=== PATIENT | male | born 2000 | race Two or more races ===

== ENCOUNTER 2024-06-22 17:48 | Emergency (ER) | payer MEDICAID, SELFPAY ==
[2024-06-22 17:49] VITALS: BMI 39.0
[2024-06-22 17:58] VITALS: BP 167/109; PULSE 106; RESP 19; TEMP 37.5; O2SAT 97
[2024-06-22 17:59] VITALS: BMI 42.5
[2024-06-22] MEDS: DIPHTH,PERTUSS(ACELL),TET VAC 0.5 ML SYR IMi (18:30)
[2024-06-22] MEDS: AMOXICILLIN/POT CLAV 875 TABLET 1 TAB PO (18:31)
--- NOTE | 2024-06-22 19:12 | PD.EDANIML ---
ED Animal Bite RME/HPI General Chief Complaint: General Adult/Misc Complain Stated Complaint: RIGHT 3RD DIGIT DOG BITE AND SORE THROAT X2 Time Seen by Provider: 06/22/24 18:23 Arrival date/time: 06/22/24 17:48 23M with no significant PMH presents to ED with bite from his dog on R middle finger. Separately, patient has had 2 days of sore throat, but denies cough. Patient has not had a tetanus shot in the past 5 years. Limitations: no limitations Related Data Previous Rx's ?Medication ?Instructions ?Recorded hydrocortisone 2.5 % topical cream 1 applic topical TID PRN allergic 05/26/22 reaction #30 grams acetaminophen 500 mg tablet 500 mg PO Q6H PRN pain #30 tabs 03/25/23 (Tylenol Extra Strength) ondansetron 4 mg disintegrating 4 mg PO Q6H PRN nausea and 03/25/23 tablet vomiting #10 tabs amoxicillin 875 mg-potassium 1 tab PO BID 10 days #20 tabs 06/22/24 clavulanate 125 mg tablet Allergies Allergy/AdvReac Type Severity Reaction Status Date / Time No Known Allergies Allergy Verified 06/22/24 17:51 Review of Systems Review of Systems Systems Reviewed: All systems reviewed, normal except as documented Constitutional Constitutional: Reports system reviewed and no additional complaints, except as documented, Denies fever(s) and Denies headache(s) ENT Ears, Nose, Mouth, and Throat: Reports as per HPI, Denies disequilibrium, Denies headache(s) and Reports sore throat Cardiovascular Cardiovascular: Reports system reviewed and no additional complaints, except as documented, Denies chest pain and Denies dyspnea Respiratory Respiratory: Reports system reviewed and no additional complaints, except as documented, Denies cough and Denies dyspnea Gastrointestinal Gastrointestinal: Reports system reviewed and no additional complaints, except as documented, Denies abdominal pain, Denies nausea and Denies vomiting Integumentary/Breasts Skin/Breast: Reports as per HPI and Reports skin pain Neurologic Neurologic: Reports system reviewed and no additional complaints, except as documented, Denies confusion, Denies disequilibrium and Denies headache(s) Psychiatric Psychiatric: Denies confusion Past Medical History Social History SMOKING STATUS: Never smoker SUBSTANCE USE: does not use ED Exam General Limitations: Present no limitations General appearance: Present alert and in no apparent distress Head Head exam: Present atraumatic Eye Eye exam: Present normal appearance, PERRL and EOMI ENT ENT exam: Present mucous membranes moist Expanded ENT Exam Throat exam: Present tonsillar erythema, tonsillomegaly and tonsillar exudate; Absent R peritonsillar mass, L peritonsillar mass or muffled voice Neck Neck exam: Present normal inspection, full ROM and trachea midline Chest Chest inspection: Present normal inspection and symmetric chest wall rise Respiratory Respiratory exam: Present normal lung sounds bilaterally Cardiovascular Cardiovascular exam: Present regular rate, normal rhythm and normal heart sounds Abdominal Exam Abdominal exam: Present soft and normal bowel sounds Extremities Exam Extremities exam: Present normal inspection and full ROM Back Exam Back exam: Present normal inspection and full ROM Neurological Exam Neurological exam: Present alert, oriented X3 and CN II-XII intact Psychiatric Psychiatric exam: Present normal affect and normal mood Skin Skin exam: Present warm, dry, intact and normal color Course Quality Measures none Orders Category Date Time Status Wound Care NOW Care 06/22/24 18:24 Completed Amoxicillin/Pot Clav 875 [Augmentin 875] Med 06/22/24 18:24 Discontinued 1 tab PO X1 ONE Tet,Diphth,Pertuss(Acell)-Tdap [Boostrix Vacc] Med 06/22/24 18:24 Discontinued 0.5 ml IMI .ONCE ONE Vital Signs Vital signs: Vital Signs Temperature 99.5 F 06/22/24 17:58 Pulse Rate 106 H 06/22/24 17:58 Respiratory Rate 19 06/22/24 17:58 Blood Pressure 167/109 H 06/22/24 17:58 Pulse Oximetry (%) 97 06/22/24 17:58 Oxygen Delivery Method Room Air 06/22/24 17:58 O2 at 97% on RA and WNLs Animal Bite MDM Narrative MDM Narrative:: 23M with no significant PMH presents to ED with bite from his dog on R middle finger. Separately, patient has had 2 days of sore throat, but denies cough. Patient has not had a tetanus shot in the past 5 years. Physical exam reveals red and swollen oropharynx with exudates. Mild puncture wound on R middle finger. ROM intact. Patient is afebrile, calm, and alert. Wound cleaned/irrigated and bandaged. Tdap given. ABX for dog bite should cover likely strep throat. Patient data External records reviewed:: [facility] previous records Clinical information provided by:: patient Social determinants that could affect healthcare access:: none Patient has the following chronic illnesses:: none How is presenting disease/condition affected by chronic disease/condition?: no chronic disease Evaluation data The following diagnostics were reviewed and interpreted by me:: other (specify) (none) Lab and/or radiology exams considered but not ordered:: not ordered Interpretation Summary: n/a Medications / Prescriptions Medications or Prescriptions considered but not ordered:: ordered Medication administrations:: Medication Administration History Discontinued Medications Amoxicillin/Clavulanate Potassium (Amoxicillin/Pot Clav 875 Tablet) 1 tab PO X1 ONE Stop: 06/22/24 18:25 Last Admin: 06/22/24 18:31 Dose: 1 tab Documented By: OA Diphtheria/Tetanus/Acell Pertussis (Diphth,Pertuss(Acell),Tet Vac 0.5 Ml Syr) 0.5 ml IMi .ONCE ONE Stop: 06/22/24 18:25 Last Admin: 06/22/24 18:30 Dose: 0.5 ml Documented By: SERAFIN above Consultations Consultation(s) initiated? (list below): No Diagnosis Differential diagnosis animal bite: bite by animal, dog bite, rabies contact and other (tonsillitis, URI) Most likely diagnosis given after review of the tests above:: tonsillitis and dog bite Admission Indicated Admission indicated?: not indicated Admission Request Was there a request for admission?: No Disposition Plan Disposition Plan: Discharge Discharge Attestation Discharge Attestation: The patient and all family members were given an opportunity to ask questions and understood the discharge instructions. Discharge instructions specifically effects, indications for sooner follow up or return to the emergency department, and the expected course of current diagnosis. Patient condition: Stable Discharge Plan Plan Patient Disposition: HOME (Self Care) Disposition Comment: Stable Prescriptions/Referrals Prescriptions/Med Rec: New amoxicillin-pot clavulanate 875-125 mg tablet 1 tab PO BID 10 Days Qty: 20 0RF No Action hydrocortisone 2.5 % cream 1 applic topical TID PRN (Reason: allergic reaction) Qty: 30 0RF ondansetron 4 mg tablet,disintegrating 4 mg PO Q6H PRN (Reason: nausea and vomiting) Qty: 10 0RF acetaminophen [Tylenol Extra Strength] 500 mg tablet 500 mg PO Q6H PRN (Reason: pain) Qty: 30 0RF Problem List Clinical Impression: Dog bite, Acute tonsillitis Patient/Caregiver Discharge Instructions Education Materials: Tonsillitis in Adults, ED Dog Bite Additional Instructions: Please follow-up with PCP within 24-48 hours and return immediately if symptoms worsen. Ibuprofen/Tylenol can be used simultaneously for greater fever/pain controk. Print Language: Danish Stand Alone Forms: Patient Portal Info Letter PA/MANAGER OF MARKETING Supervising Physician PA/MANAGER OF MARKETING Supervising Physician: Dr. Lynne
== END 2024-06-22 19:00 | disposition home or self-care (01) ==
LOC: SERX 18:50
PROVIDERS: Emergency Provider Emergency Medicine; PCP Family Medicine
DX: S61.252A Open bite of right middle finger without damage to nail, initial encounter (principal); J03.90 Acute tonsillitis, unspecified; Z23 Encounter for immunization; W54.0XXA Bitten by dog, initial encounter
CPT/HCPCS: 90471; 90715; 99282; A9270